=== PATIENT | female | born 1980 | race Caucasian/White ===

== ENCOUNTER 2016-09-29 21:30 | Outpatient (CLI) | payer OTHER ==
--- NOTE | 2016-09-29 22:35 | DIAGNOSTIC IMAGING REPORT ---
PROCEDURE: XR SHOULDER 2 OR MORE VW-RIGHT INDICATION: Right shoulder pain x 2 days, initial encounter TECHNIQUE: Three views. COMPARISON: None. FINDINGS: Osseous structures, joint spaces and soft tissues are normal. IMPRESSION: 1. Normal right shoulder.
--- NOTE | 2016-09-29 23:12 | ED CLINICAL REPORT ---
Clinical Report - Physicians/Mid Levels [facility] [address] [place] [address] 09/29/2016 21:33 Patient: FRANK MAN Time Seen: 2144; upon arrival, initial patient contact, initial documentation, patient care assumed. Arrived- By private vehicle. Historian- patient. HISTORY OF PRESENT ILLNESS Chief Complaint: UPPER EXTREMITY PAIN. This started about 2 - 3 days ago and is still present. Severity is described as being severe. It has become recently worse. The quality is noted to be "pain". No radiation. Modifying factors- worsened by movement of arm. Not made better by anything. Symptoms located in the area of the right shoulder. No chest pain, difficulty breathing, swelling, sensory loss or motor loss. No repetitive hand use at work. She has not had redness. Patient denies an injury. Similar symptoms previously: None. Recent medical care: Not recently seen/assessed. REVIEW OF SYSTEMS No fever or cough. All systems otherwise negative, except as recorded above. PAST HISTORY See nurses notes. PROBLEMS: Ruptured diverticulum. Diverticulosis. UTI - Urinary Tract Infection. Contact Dermatitis. Hematuria. Ruptured diverticilits. Peritonitis. Abdominal Pain. Tetanus Status. Immunizations. Intervertebral Disc Disease. Sciatica. LNMP - Last Normal Menstrual Period. Back Pain. --21:52 Krystian Webber R.N. ADDITIONAL SURGERIES: Bowel resection. Colostomy. . Dental Surgery. Oral surgery. --21:53 Krystian Webber R.N. SOCIAL HISTORY Heavy tobacco smoker. Occasional alcohol use. No drug use. No recent travel. Is a local resident. FAMILY HISTORY Negative. ADDITIONAL NOTES The nursing notes have been reviewed with agreement regarding the chief complaint, HPI, ROS, PMH and patient medications and allergies. PHYSICAL EXAM Vital Signs: 09/29/2016 21:47 BP: 103/63. HR: 68. RR: 14. O2 saturation: 100%. Temp: 98 F. Have been reviewed as normal and appear to be correct. Appearance: Alert. Oriented X3. No acute distress. Eyes: Pupils equal, round and reactive to light. Eyes normal inspection. Neck: Normal inspection. Neck supple. Respiratory: No respiratory distress. Back: Normal inspection. No tenderness. ROM normal. Skin: Skin intact. Skin warm and dry. Normal skin color. Normal skin turgor. Extremities: Upper extremities abnormal to inspection. Upper extremities do not exhibit normal ROM. Upper extremities nontender. No upper extremity edema. Right shoulder: located in the acromion process. Limited ROM due to pain (diminished abduction and flexion). Neurovascular intact distally. No erythema, tenderness, swelling, laceration or abrasion. No ecchymosis, puncture wound, foreign body or deformity. No joint effusion. Extremities otherwise negative. Neuro: Oriented X 3. No motor deficit. No sensory deficit. LABS, X-RAYS, AND EKG X-Rays: Right shoulder negative. PROGRESS AND PROCEDURES Course of Care: 2307. Called radiology, spoke to klaudia Seo, can't see film in pax, Rayray reporting xray done, read by Roderick and normal. Patient counseled in person regarding the patient's stable condition, test results and diagnosis. 23:12. Differential Diagnosis: I considered fracture, stress fracture, aseptic necrosis, primary tumor, degenerative joint disease, arthritis, rheumatoid arthritis, gout, pseudogout, sprain, hyperextension, dislocation, rotator cuff tear, acromioclavicular separation, lateral epicondylitis, soft tissue injury, tendonitis, myositis, fasciitis and bursitis as a possible cause of upper extremity pain in this patient. This is a partial list of diagnoses considered. Above considerations are based on history, physical exam and X-Ray data. Differential diagnosis was discussed with patient. Disposition: Discharged home in good and improved condition (23:13). Condition: good and stable. CLINICAL IMPRESSION Acute upper extremity pain involving the right shoulder. INSTRUCTIONS Warnings: GENERAL WARNINGS: Return or contact your physician immediately if your condition worsens or changes unexpectedly, if not improving as expected, or if other problems arise. Specifically return if problem worsens. Prescription Medications: Ultram 50 mg tablets: take 1-2 orally every 6 hours as needed for pain. Dispense twenty (20). No refills. Substitution is permissible. Follow-up: Follow up with your doctor in about one week as needed. Call for an appointment. Summary of care provided to patient. Understanding of the discharge instructions verbalized by patient. (Electronically signed by Christelle Garcia A.R.N.P. 09/29/2016 23:38)
--- NOTE | 2016-09-29 23:12 | ED NURSING NOTES ---
Clinical Report - Nurses [facility] [address] [place] [address] 09/29/2016 21:33 Patient: FRANK MAN TRIAGE Triage time 2145. Acuity: LEVEL 3. Chief Complaint: RIGHT UPPER EXTREMITY PAIN. --21:56 Krystian Webber R.N. 21:47 09/29/16. BP: 103/63. HR: 68. RR: 14. O2 saturation: 100%. Temp: 98 F. --21:56 Krystian Webber R.N. 23:25 09/29/16. Pain level now 0/10. --23:25 Krystian Webber R.N. Weight: 58 kg stated. Height/Length: 63 inches Per Patient. BMI: 22.7. --21:54 Krystian Webber R.N. Medications None. --21:52 Krystian Webber R.N. Allergies Benadryl. IV Contrast. Morphine Sulfate. Sudafed. Vicodin. (Adverse reaction) --21:52 Krystian Webber R.N. History Arrived by private vehicle. Historian: patient. Accompanied by friend. No injury occurred. ( limited range of motion with RUE, pt states it is painful to abduct arm laterally or anteriorly though posterior is non-problamatic. elbow, wrist, hand unaffected.). 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 SOCIAL HX: Heavy tobacco smoker- 1 pack per day. No infectious disease exposure. FALL RISK ASSESSMENT: Fall risk assessment completed. No fall risk identified. NUTRITIONAL RISK ASSESSMENT: The nutritional risk assessment revealed no deficiencies. FUNCTIONAL ASSESSMENT: Functional assessment: no impairments noted. LEARNING NEEDS ASSESSMENT: The learning needs assessment revealed no barriers. SKIN INTEGRITY ASSESSMENT: Skin integrity risk assessment completed. No skin integrity risk identified. --21:56 Krystian Webber R.N. PROBLEMS: Ruptured diverticulum. Diverticulosis. UTI - Urinary Tract Infection. Contact Dermatitis. Hematuria. Ruptured diverticilits. Peritonitis. Abdominal Pain. Tetanus Status. Immunizations. Intervertebral Disc Disease. Sciatica. LNMP - Last Normal Menstrual Period. Back Pain. --21:52 Krystian Webber R.N. ADDITIONAL SURGERIES: Bowel resection. Colostomy. . Dental Surgery. Oral surgery. --21:53 Krystian Webber R.N. Interventions ID band on patient. --21:56 Krystian Webber R.N. PHYSICAL ASSESSMENT Ambulatory to room. GENERAL / NEURO / PSYCH: Oriented X 4. Alert. EXTREMITIES: No upper extremity edema. Skin is non-tender on the extremities. SKIN: Skin intact. Skin is warm and dry. --21:56 Krystian Webber R.N. NURSING PROGRESS NOTES Patient gowned. Reassurance given. Patient identifiers checked. Bed placed in lowest position. Brakes of bed on. --21:57 Krystian Webber R.N. DISPOSITION / DISCHARGE Departure time: 0. Condition at departure: improved. No learning barriers present. Discharge instructions provided and reviewed with management nurse rn and the patient. Reviewed warnings. Reviewed medication(s). Treatments reviewed. Patient and management nurse rn verbalized understanding. Written instructions provided in Indonesian. The patient was discharged by the physician executive marketing assistant. She was discharged home and accompanied by management nurse rn. She left the Emergency Department ambulatory and via private vehicle. Aeronautical Design Engineer driving. ( pt's management nurse rn extremely unhappy with our not giving the pt narcotic pain medications. pt's management nurse rn also stating pt should not ice shoulder due to it being cold outside.). FALL RISK ASSESSMENT: Fall risk assessment completed. No fall risk identified. --23:25 Krystian Webber R.N. 23:20 09/29/16. BP: 105/60. HR: 66. RR: 14. O2 saturation: 100%. Temp: 98 F. Pain level now 0/10. --23:25 Krystian Webber R.N. Locked/Released at 09/29/2016 23:25 by Krystian Webber R.N.
--- NOTE | 2016-09-29 23:12 | ED NURSING NOTES ---
Clinical Report - Nurses [facility] [address] [place] [address] 09/29/2016 21:33 Patient: FRANK MAN TRIAGE Triage time 2145. Acuity: LEVEL 3. Chief Complaint: RIGHT UPPER EXTREMITY PAIN. --21:56 Krystian Webber R.N. 21:47 09/29/16. BP: 103/63. HR: 68. RR: 14. O2 saturation: 100%. Temp: 98 F. --21:56 Krystian Webber R.N. 23:25 09/29/16. Pain level now 0/10. --23:25 Krystian Webber R.N. Weight: 58 kg stated. Height/Length: 63 inches Per Patient. BMI: 22.7. --21:54 Krystian Webber R.N. Medications None. --21:52 Krystian Webber R.N. Allergies Benadryl. IV Contrast. Morphine Sulfate. Sudafed. Vicodin. (Adverse reaction) --21:52 Krystian Webber R.N. History Arrived by private vehicle. Historian: patient. Accompanied by friend. No injury occurred. ( limited range of motion with RUE, pt states it is painful to abduct arm laterally or anteriorly though posterior is non-problamatic. elbow, wrist, hand unaffected.). 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 SOCIAL HX: Heavy tobacco smoker- 1 pack per day. No infectious disease exposure. FALL RISK ASSESSMENT: Fall risk assessment completed. No fall risk identified. NUTRITIONAL RISK ASSESSMENT: The nutritional risk assessment revealed no deficiencies. FUNCTIONAL ASSESSMENT: Functional assessment: no impairments noted. LEARNING NEEDS ASSESSMENT: The learning needs assessment revealed no barriers. SKIN INTEGRITY ASSESSMENT: Skin integrity risk assessment completed. No skin integrity risk identified. --21:56 Krystian Webber R.N. PROBLEMS: Ruptured diverticulum. Diverticulosis. UTI - Urinary Tract Infection. Contact Dermatitis. Hematuria. Ruptured diverticilits. Peritonitis. Abdominal Pain. Tetanus Status. Immunizations. Intervertebral Disc Disease. Sciatica. LNMP - Last Normal Menstrual Period. Back Pain. --21:52 Krystian Webber R.N. ADDITIONAL SURGERIES: Bowel resection. Colostomy. . Dental Surgery. Oral surgery. --21:53 Krystian Webber R.N. Interventions ID band on patient. --21:56 Krystian Webber R.N. PHYSICAL ASSESSMENT Ambulatory to room. GENERAL / NEURO / PSYCH: Oriented X 4. Alert. EXTREMITIES: No upper extremity edema. Skin is non-tender on the extremities. SKIN: Skin intact. Skin is warm and dry. --21:56 Krystian Webber R.N. NURSING PROGRESS NOTES Patient gowned. Reassurance given. Patient identifiers checked. Bed placed in lowest position. Brakes of bed on. --21:57 Krystian Webber R.N. DISPOSITION / DISCHARGE Departure time: 0. Condition at departure: improved. No learning barriers present. Discharge instructions provided and reviewed with sprinkler inspector and the patient. Reviewed warnings. Reviewed medication(s). Treatments reviewed. Patient and sprinkler inspector verbalized understanding. Written instructions provided in Irish. The patient was discharged by the physician access services assistant. She was discharged home and accompanied by sprinkler inspector. She left the Emergency Department ambulatory and via private vehicle. Gardener Florist driving. ( pt's sprinkler inspector extremely unhappy with our not giving the pt narcotic pain medications. pt's sprinkler inspector also stating pt should not ice shoulder due to it being cold outside.). FALL RISK ASSESSMENT: Fall risk assessment completed. No fall risk identified. --23:25 Krystian Webber R.N. 23:20 09/29/16. BP: 105/60. HR: 66. RR: 14. O2 saturation: 100%. Temp: 98 F. Pain level now 0/10. --23:25 Krystian Webber R.N. Locked/Released at 09/29/2016 23:25 by Krystian Webber R.N.
--- NOTE | 2016-09-29 23:13 | ED ORDER SUMMARY ---
..... Patient: FRANK MAN OrderSheet [facility] VisitID: [id number] [address] [place] [address] 36y, F Registration Date/Time: 09/29/2016 ORDER SHEET Weight: 58.0 kg (stated) Allergies: Benadryl, IV Contrast, Morphine Sulfate, Sudafed, Vicodin GENERAL ORDERS: Shoulder 2V or more Right Urgent (22:06 09/29/2016 HBivens A.R.N.P.) (22:30 MCabell) MEDICATION ORDERS: IV FLUIDS: ORDER SHEET NOTES: [Electronically signed by Krystian Webber R.N. (23:25 09/29/2016)] [Electronically signed by Christelle GarciaR.N.PJosemanuel (23:38 09/29/2016)] [Electronically locked/signed by Krystian Webber R.N. (23:25 09/29/2016)]
--- NOTE | 2016-09-29 23:13 | ED ORDER SUMMARY ---
..... Patient: FRANK MAN OrderSheet [facility] VisitID: [id number] [address] [place] [address] 36y, F Registration Date/Time: 09/29/2016 ORDER SHEET Weight: 58.0 kg (stated) Allergies: Benadryl, IV Contrast, Morphine Sulfate, Sudafed, Vicodin GENERAL ORDERS: Shoulder 2V or more Right Urgent (22:06 09/29/2016 HBivens A.R.N.P.) (22:30 MCabell) MEDICATION ORDERS: IV FLUIDS: ORDER SHEET NOTES: [Electronically signed by Krystian Webber R.N. (23:25 09/29/2016)] [Electronically signed by Christelle GarciaR.N.PJosemanuel (23:38 09/29/2016)] [Electronically locked/signed by Krystian Webber R.N. (23:25 09/29/2016)]
--- NOTE | 2016-09-29 23:38 | ED DISCHARGE INSTRUCTIONS ---
Patient: FRANK MAN General Instructions [facility] VisitID: [id number] [place] [address] 36y, F Registration Date/Time: 09/29/2016 Acute upper extremity pain involving the right shoulder. INSTRUCTIONS Warnings: GENERAL WARNINGS: Return or contact your physician immediately if your condition worsens or changes unexpectedly, if not improving as expected, or if other problems arise. Specifically return if problem worsens. Prescription Medications: Ultram 50 mg tablets: take 1-2 orally every 6 hours as needed for pain. Dispense twenty (20). No refills. Substitution is permissible. Follow-up: Follow up with your doctor in about one week as needed. Call for an appointment. Summary of care provided to patient. Understanding of the discharge instructions verbalized by patient. ADDITIONAL INFORMATION Shoulder Pain (Uncertain Cause) Shoulder pain often arises from the structures that surround the shoulder joint (the joint capsule, ligaments, tendons, muscles, and bursa). The joint itself contains cartilage that can become worn out or injured and can also be a source of pain. The correct treatment requires knowing the cause of the pain. Sometimes it is difficult to diagnose the exact cause of shoulder pain and referral to a specialist may be required. You may eventually need special tests such as CT scan, MRI, or arthroscopy (a procedure that uses special instruments to look inside the joint through a small incision). Shoulder pain can be treated initially with a sling or shoulder immobilizer and anti-inflammatory medicines such as ibuprofen. Special shoulder exercises may be needed. Follow-up with a specialist is important when pain is severe or does not go away after a few weeks. Home Care: If a sling was provided, leave it in place for the time advised by your doctor. If you are unsure how long to wear it, ask for advice. If the sling becomes loose, adjust it so that your forearm is level with the ground and the shoulder feels well supported. Apply an ice pack (ice cubes in a plastic bag, wrapped in a towel) over the injured area for 20 minutes every 1 to 2 hours the first day for pain relief. Continue this 3 to 4 times a day until the pain and swelling go away. You may use acetaminophen (Tylenol) or ibuprofen (Motrin, Advil) to control pain, unless another pain medicine was prescribed. (NOTE: If you have chronic liver or kidney disease or ever had a stomach ulcer or GI bleeding, talk with your doctor before using these medicines.) Shoulder pain may seem worse at night, when there is less to distract you from the pain. If you sleep on your side, try to keep your weight off your painful shoulder. Propping pillows behind you may prevent you from rolling over onto that shoulder during sleep. Shoulder joints become stiff if left in a sling for too long. [id number] exercises should usually be started within the first 10 days after injury. Consult your doctor on what type of exercises to do and how soon to start. You may remove the sling to shower or bathe. Follow Up with your doctor, or as advised by our staff, if you are not starting to improve within the next 5 days. Get Prompt Medical Attention if any of the following occur: Pain or swelling increases Hand or fingers becomes cold, blue, numb, or tingly Large amount of bruising of the shoulder or upper arm Tramadol Hydrochloride Oral tablet What is this medicine? TRAMADOL (TRA ma dole) is a pain reliever. It is used to treat moderate to severe pain in adults. How should I use this medicine? Take this medicine by mouth with a full glass of water. Follow the directions on the prescription label. If the medicine upsets your stomach, take it with food or milk. Do not take more medicine than you are told to take. Talk to your nutritional health coach regarding the use of this medicine in children. Special care may be needed. What side effects may I notice from receiving this medicine? Side effects that you should report to your doctor or health medicare sales representative as soon as possible: allergic reactions like skin rash, itching or hives, swelling of the face, lips, or tongue breathing difficulties, wheezing confusion itching light headedness or fainting spells redness, blistering, peeling or loosening of the skin, including inside the mouth seizures Side effects that usually do not require medical attention (report to your doctor or health medicare sales representative if they continue or are bothersome): constipation dizziness drowsiness headache nausea, vomiting What may interact with this medicine? Do not take this medicine with any of the following medications: MAOIs like Carbex, Eldepryl, Marplan, Nardil, and Parnate This medicine may also interact with the following medications: alcohol or medicines that contain alcohol antihistamines benzodiazepines bupropion carbamazepine or oxcarbazepine clozapine cyclobenzaprine digoxin furazolidone linezolid medicines for depression, anxiety, or psychotic disturbances medicines for migraine headache like almotriptan, eletriptan, frovatriptan, naratriptan, rizatriptan, sumatriptan, zolmitriptan medicines for pain like pentazocine, buprenorphine, butorphanol, meperidine, nalbuphine, and propoxyphene medicines for sleep muscle relaxants naltrexone phenobarbital phenothiazines like perphenazine, thioridazine, chlorpromazine, mesoridazine, fluphenazine, prochlorperazine, promazine, and trifluoperazine procarbazine warfarin What if I miss a dose? If you miss a dose, take it as soon as you can. If it is almost time for your next dose, take only that dose. Do not take double or extra doses. Where should I keep my medicine? Keep out of the reach of children. Store at room temperature between 15 and 30 degrees C (59 and 86 degrees F). Keep container tightly closed. Throw away any unused medicine after the expiration date. What should I tell my health care provider before I take this medicine? They need to know if you have any of these conditions: brain tumor depression drug abuse or addiction head injury if you frequently drink alcohol containing drinks kidney disease or trouble passing urine liver disease lung disease, asthma, or breathing problems seizures or epilepsy suicidal thoughts, plans, or attempt; a previous suicide attempt by you or a family member an unusual or allergic reaction to tramadol, codeine, other medicines, foods, dyes, or preservatives or trying to get breast-feeding What should I watch for while using this medicine? Tell your doctor or health medicare sales representative if your pain does not go away, if it gets worse, or if you have new or a different type of pain. You may develop tolerance to the medicine. Tolerance means that you will need a higher dose of the medicine for pain relief. Tolerance is normal and is expected if you take this medicine for a long time. Do not suddenly stop taking your medicine because you may develop a severe reaction. Your body becomes used to the medicine. This does NOT mean you are addicted. Addiction is a behavior related to getting and using a drug for a non-medical reason. If you have pain, you have a medical reason to take pain medicine. Your doctor will tell you how much medicine to take. If your doctor wants you to stop the medicine, the dose will be slowly lowered over time to avoid any side effects. You may get drowsy or dizzy. Do not drive, use machinery, or do anything that needs mental alertness until you know how this medicine affects you. Do not stand or sit up quickly, especially if you are an older patient. This reduces the risk of dizzy or fainting spells. Alcohol can increase or decrease the effects of this medicine. Avoid alcoholic drinks. You may have constipation. Try to have a bowel movement at least every 2 to 3 days. If you do not have a bowel movement for 3 days, call your doctor or health medicare sales representative. Your mouth may get dry. Chewing sugarless gum or sucking hard candy, and drinking plenty of water may help. Contact your doctor if the problem does not go away or is severe. You have been given the following additional information: Shoulder Pain (Uncertain Cause) Tramadol Hydrochloride Oral tablet (Electronically signed by Christelle Garcia A.R.N.P. 09/29/2016 23:38)
--- NOTE | 2016-09-29 23:39 | ED MED RECONCILIATION SUMMARY ---
Patient: FRANK MAN Medication Reconciliation Report [facility] VisitID: [id number] [address] [place] [address] 36y, F Registration Date/Time: 09/29/2016 Weight: 58.0 kg Height/Length: 63 in. BMI: 22.7 ALLERGIES: Benadryl, IV Contrast, Morphine Sulfate, Sudafed, Vicodin The patient's Home Medications are listed below: NONE. The source(s) of the original Home Medication information: Not obtained. The following Medications were given to the patient in the Emergency Department: None. The following Medications were prescribed to the patient: Ultram 50 mg tablets: take 1-2 orally every 6 hours as needed for pain. Dispense twenty (20). No refills. Substitution is permissible. -- Christelle Garcia A.R.N.P.
--- NOTE | 2016-09-29 23:39 | ED MAR SUMMARY ---
..... Medication Administration Record [facility] [address] [place], [place] [id number] Patient: FRANK MAN Visit ID: [id number] 36y, F Weight: 58.0 kg Height/Length: 63 in BMI: 22.7 ALLERGIES: Benadryl, IV Contrast, Morphine Sulfate, Sudafed, Vicodin
--- NOTE | 2016-09-29 23:39 | ED MED RECONCILIATION SUMMARY ---
Patient: FRANK MAN Medication Reconciliation Report [facility] VisitID: [id number] [address] [place] [address] 36y, F Registration Date/Time: 09/29/2016 Weight: 58.0 kg Height/Length: 63 in. BMI: 22.7 ALLERGIES: Benadryl, IV Contrast, Morphine Sulfate, Sudafed, Vicodin The patient's Home Medications are listed below: NONE. The source(s) of the original Home Medication information: Not obtained. The following Medications were given to the patient in the Emergency Department: None. The following Medications were prescribed to the patient: Ultram 50 mg tablets: take 1-2 orally every 6 hours as needed for pain. Dispense twenty (20). No refills. Substitution is permissible. -- Christelle Garcia A.R.N.P.
--- NOTE | 2016-09-29 23:39 | ED MAR SUMMARY ---
..... Medication Administration Record [facility] [address] [place], [place] [id number] Patient: FRANK MAN Visit ID: [id number] 36y, F Weight: 58.0 kg Height/Length: 63 in BMI: 22.7 ALLERGIES: Benadryl, IV Contrast, Morphine Sulfate, Sudafed, Vicodin
== END 2016-09-29 23:20 | disposition home or self-care (01) ==
LOC: IMAGING SR 21:30 → XR SRH 21:32 → IMAGING SR 21:32 → XR SRH 23:20 → IMAGING SR 23:20
DX: M25.511 Pain in right shoulder (principal); Z88.5 Allergy status to narcotic agent; Z88.8 Allergy status to other drugs, medicaments and biological substances; Z91.041 Radiographic dye allergy status; F17.210 Nicotine dependence, cigarettes, uncomplicated